=== PATIENT | female | born 1955 | race Caucasian/White ===

== ENCOUNTER 2016-07-28 01:32 | Observation (INO) | payer SELFPAY ==
[~2016-07-28] VITALS: Ht 157.5 cm; Wt 81.6 kg
[~2016-07-28 01:32] MED LIST: METO25TA3 PO; NALOXONE HCL 0.4 MG/ML AMP IV PRN; SODIUM CHLORIDE 0.9% FLUSH 10 ML FLUSH IV FLUSH PRN
[2016-07-28 01:45] VITALS: BP 160/93; PULSE 63; RESP 20; TEMP 97.3; TEMP 97.7; O2SAT 98
[2016-07-28 02:08] VITALS: PULSE 61
[2016-07-28 03:00] VITALS: PULSE 61
[2016-07-28 03:17] LABS: CREATINE KINASE 70 U/L (26-192)
[2016-07-28 04:00] VITALS: BP 152/94; PULSE 59; RESP 20; TEMP 97.7; O2SAT 97
--- NOTE | 2016-07-28 07:15 | HHI.HP ---
[facility] Primary Care Physician Non-Staff Admission Diagnosis hypertension, chest pain Diagnoses: (1) Accelerated hypertension Diagnosis: Principal (2) Chest pain Diagnosis: Principal (3) Elevated d-dimer Diagnosis: Principal (4) Cephalgia Diagnosis: Principal Chief Complaint: Elevated blood pressure, chest pain, headache Travel History International Travel<30 Days: No Contact w/Intl Traveler <30 Da: No History of Present Illness Written by Denis Schmid, acting as scribe for Dr. Olivas on 07/28/16 at 07: 25. 61-year-old female with known history of hypertension who presented to the hospital because of multiple symptoms to include headache, elevated blood pressure, chest pain, nausea, vomiting. Patient was in her normal state of health until yesterday approximately 3 PM when she was working. 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 She states that 3 PM yesterday she developed sharp stabbing pain in the left anterior chest which only lasted for a couple seconds with associated nausea, vomiting, diaphoresis, headache. Because of those reasons she came to emergency department for evaluation. Patient indicates that she has been having this type of pain intermittently over the last week which has been happening couple times daily. She indicates that she has been having discomfort prior to not taking her blood pressure medication but only once every week at that time. To to Upon evaluation in the emergency department patient was found to have accelerated hypertension, which improved after the use of clonidine. Patient had workup done which indicated an elevated d-dimer, CTA of the chest was performed which was unremarkable for any pulmonary emboli. CT of the brain was done which did not indicate any acute abnormality. Patient indicates that she usually takes metoprolol 25 mg twice daily, however, patient has been out of her blood pressure medications for 6 days. She does not have a primary medical doctor in order to fill her prescriptions. Patient indicates that after control of her blood pressure her headache did improve and she is asymptomatic at this time. At the time evaluating the patient she is asymptomatic. Blood pressure is improved. Due to the patient's increased risk factors will continue to evaluate for acute coronary syndrome and rule out for underlying ischemia. Review of Systems Constitutional: COMPLAINS OF: Diaphoretic episodes, DENIES: Fatigue, Fever, Weight gain, Weight loss, Chills, Dizziness, Change in appetite, Night Sweats Endocrine: DENIES: Abnorml menstrual pattern, Heat/cold intolerance, Polydipsia , Polyuria, Polyphagia Eyes: COMPLAINS OF: Blurred vision, DENIES: Diplopia, Eye inflammation, Eye pain, Vision loss, Double Vision Ears, nose, mouth, throat: DENIES: Nasal discharge, Throat pain, Ear Pain, Running Nose, Sinus Pain Respiratory: DENIES: Apneas, Cough, Snoring, Wheezing, Hemoptysis, Sputum production, Shortness of breath Cardiovascular: COMPLAINS OF: Chest pain, DENIES: Palpitations, Syncope, Dyspnea on Exertion, Lower Extremity Edema, Orthopnea Gastrointestinal: COMPLAINS OF: Nausea, Vomiting, DENIES: Abdominal pain, Black stools, Bloody stools, Constipation, Diarrhea, Difficulty Swallowing, Anorexia Genitourinary: DENIES: Abnormal vaginal bleeding, Dysmenorrhea, Dyspareunia, Sexual dysfunction, Urinary frequency, Urinary incontinence, Urgency, Hematuria , Dysuria, Nocturia, Vaginal discharge Musculoskeletal: DENIES: Joint pain, Muscle aches, Stiffness, Joint Swelling, Back pain, Neck pain Integumentary: DENIES: Abnormal pigmentation, Pruritus, Rash, Nail changes, Breast masses, Breast skin changes, Nipple discharge Hematologic/lymphatic: DENIES: Bruising, Lymphadenopathy Immunologic/allergic: DENIES: Eczema, Urticaria Neurologic: DENIES: Abnormal gait, Headache, Localized weakness, Paresthesias, Seizures, Speech Problems, Tremor, Poor Balance Psychiatric: DENIES: Anxiety, Confusion, Mood changes, Depression, Agitation, Suicidal Ideation, Homicidal Ideation Past Family Social History Past Medical History Hypertension Past Surgical History Hysterectomy Appendectomy Cholecystectomy Reported Medications Reported Meds & Active Scripts Active Reported Metoprolol Tartrate 25 Mg Tab 25 Mg PO BID Allergies: Coded Allergies: Codeine (Verified Allergy, Severe, 07/27/16) Family History Reviewed is significant for mother from heart disease Social History Patient denied any tobacco, alcohol or illicit drug use Physical Exam Vital Signs Vital Signs Date Time Temp Pulse Resp B/P Pulse Ox O2 Delivery O2 Flow Rate FiO2 07/28/16 04:00 97.7 59 20 152/94 97 07/28/16 03:00 61 6/21/17 02:08 61 07/28/16 01:45 97.3 63 20 160/93 98 07/28/16 01:45 97.7 63 20 160/93 98 Physical Exam GENERAL: Well-developed, well-nourished, in no acute distress. alert and orientated HEENT: Head is normocephalic without any lesions or masses noted. Facial features are symmetric. Eyes: Pupils equal round reactive to light. Extraocular muscles are intact. Conjunctivae were clear. Oropharyngeal: Pharynx without any erythema edema. Tongue is midline without deviation. Buccal mucosa is moist without any masses or lesions NECK: Supple without any masses. Trachea midline no deviation. No JVD, no bruits are appreciated CARDIAC: Regular rhythm, regular rate. S1/S2 are heard. No murmurs gallops or rubs. LUNGS: Clear to auscultation bilaterally. No wheeze, rhonchi or rales. No use of accessory muscles on inspiration or expiration. ABDOMEN: Soft, nontender. Nondistended. Bowel sounds heard in all 4 quadrants. No organomegaly or masses. Negative rebound, negative guarding EXTREMITIES: No edema, pulses are equal bilaterally. No cyanosis or clubbing NEUROLOGY: Mood and affect appear appropriate. Cranial nerves II through XII grossly intact. Muscle strength 5/5 in upper and lower extremities bilaterally. Deep tendon reflexes are 2+ in upper and lower extremities bilaterally. Laboratory Laboratory Tests Test 07/28/16 02:30 Total Creatine Kinase 70 Troponin I LESS THAN 0.02 Assessment and Plan Assessment and Plan Chest pain, with associated nausea, vomiting, diaphoresis Patient does have increased risk factors to include age, hypertension, family history of heart disease The patient has been ruled out out for acute coronary event with serial cardiac enzymes and serial EKGs do show lateral T-wave changes V3, V4, V5 which were apparent on initial EKG in emergency department Will pursue nuclear stress test rule out any underlying ischemia Elevated d-dimer: Pulmonary angiogram did not indicate any acute abnormality Check lipid panel Start aspirin Nitroglycerin as needed Resume patient's beta love Accelerated hypertension, secondary to patient ran out of her blood pressure medication Resume patient's home medication metoprolol 25 mg twice daily Clonidine as needed Cephalgia, resolved Likely secondary to uncontrolled hypertension CT of the head did not indicate any acute abnormality DVT prevention Low risk, early ambulation This note was transcribed by wanda Schmid. I, Dr. Shayan Olivas personally performed the history, physical exam, and medical decision making; and confirmed the accuracy of the information in the transcribed note. Authenticated by Dr. Shayan Olivas on 07/28/16 at 07:25. Discharge disposition Discharge home in stable condition if stress test is negative and blood pressure controlled Activity: Ad jaswinder. Diet: Healthy heart diet Medications per medication reconciliation Follow-up with primary medical doctor in one week Code Status Full code Discussed Condition With patient Problem Qualifiers (1) Cephalgia: Qualified Code: R51 - Nonintractable headache, unspecified chronicity pattern, unspecified headache type Denis Schmid Jul 28, 2016 07:15 Shayan Olivas MD Jul 28, 2016 07:25
[2016-07-28] MEDS ORDERED: ASPIRIN EC 81 MG TABEC PO ONE (07:45)
[2016-07-28] MEDS ORDERED: cloNIDine HCL 0.1 MG TAB PO PRN (07:45)
[2016-07-28] MEDS ORDERED: NITROGLYCERIN 0.4 MG SL 25 TABS/BTL SL PRN (07:45)
[2016-07-28 08:00] VITALS: BP 138/94; PULSE 54; PULSE 62; RESP 19; TEMP 97.6; O2SAT 97
[2016-07-28] MEDS ORDERED: SODIUM CHLORIDE 0.9% FLUSH 10 ML FLUSH IV FLUSH SCH (09:00)
[2016-07-28] MEDS ORDERED: METOPROLOL TARTRATE 25 MG TAB PO SCH (09:00)
[2016-07-28 09:16] LABS: CREATINE KINASE 60 U/L (26-192)
--- NOTE | 2016-07-28 10:06 | EKG ---
Date Performed: 07/28/2016 Time Performed: 08:00:17 PTAGE: 61 years EKG: SINUS BRADYCARDIA WITH SINUS ARRHYTHMIA T-WAVE ABNORMALITY, CONSIDER LATERAL ISCHEMIA ABNOR MAL ECG NO PREVIOUS TRACING DOCTOR: Tl Contreras Interpretating Date/Time 07/28/2016 10:06:27
[2016-07-28] MEDS ORDERED: REGADENOSON INJ 0.4 MG/5 ML SYR IV ONE (10:13)
--- NOTE | 2016-07-28 11:21 | RADRPT ---
EXAM DATE/TIME: 07/28/2016 09:53 [facility] COMPARISON: No previous studies available for comparison. INDICATIONS : Left sided chest pain and palpitations. Angina. DOSE: 25.8 mCi Tc99m Myoview at stress. 8.1 mCi Tc99m Myoview at rest. 0.4 mg Lexiscan STRESS SYMPTOMS: Chest pressure and flushed. EJECTION FRACTION: 62% MEDICAL HISTORY : Hypertension. SURGICAL HISTORY : Hysterectomy. Cholecystectomy. Appendectomy. ENCOUNTER: Initial ACUITY: 1 day PAIN SCALE: 3/10 LOCATION: Left chest TECHNIQUE: The patient underwent pharmacologic stress with infusion of prescribed dose. Continuous ECG tracing was monitored during stress. Gated SPECT imaging was performed after stress and conventional SPECT i maging was performed at rest. The examination was performed on a SPECT/CT scanner, both attenuation and non-corrected datasets were reviewed. FINDINGS: DISTRIBUTION: The maximum perfused segment at stress is in the anterolateral wall. PERFUSION STUDY: The pattern of perfusion at stress is within normal limits. GATED STUDY: There is intact wall motion and thickening without hypokinetic or dyskinetic segments. CONCLUSION: 1. No reversible perfusion defect to indicate stress-induced myocardial ischemia. RISK CATEGORY: Low (<1% Annual Mortality Rate) Mac Gonzalez MD on July 28, 2016 at 11:18 Board Certified Radiologist. This report was verified electronically.
[2016-07-28] MEDS ORDERED: METO25TA3 PO ×2 (11:30→11:35)
--- NOTE | 2016-07-28 11:30 | HHI.DCPOC ---
Discharge Care Plan Diagnosis: (1) Chest pain (2) Accelerated hypertension Goals to Promote Your Health * To prevent worsening of your condition and complications * To maintain your health at the optimal level Directions to Meet Your Goals Take your medications as prescribed Follow your dietary instruction Follow activity as directed Keep your appointments as scheduled Take your immunizations and boosters as scheduled If your symptoms worsen call your PCP, if no PCP go to Urgent Care Center or Emergency Room Smoking is Dangerous to Your Health. Avoid second hand smoke Call the 24-hour hour crisis hotline for domestic abuse at Denis Schmid Jul 28, 2016 11:30
[2016-07-28 11:43] LABS: HDL CHOLESTEROL 34.7 MG/DL (40.0-60.0)
[2016-07-28 12:00] VITALS: BP 132/86; PULSE 70; RESP 18; TEMP 98.1; O2SAT 98
--- NOTE | 2016-07-28 12:15 | HHI.PR ---
Addendum to Inpatient Note Addendum Reason: Additional Documentation Additional Information Follow-up atypical chest pain Nuclear stress test negative, therefore patient will be discharged home She was advised to remain compliant with medical care for treatment of her hypertension Shayan Olivas MD Jul 28, 2016 12:14
--- NOTE | 2016-07-28 14:18 | TR ---
Date Performed: 07/28/2016 Time Performed: 10:26:24 DOCTOR: Claus Fernandez DRUG LIST: CLINICAL HISTORY: CHEST PAIN REASON FOR TEST: REASON FOR ENDING: OBSERVATION: CONCLUSION: ECG during test demostrated resting ST changes which were not changed through test. Nuclear imaging is pending COMMENTS:
[2016-07-29] MEDS ORDERED: PNEUMOCOCCAL POLYVALENT INJ 25 MCG/0.5 ML SYR IM ONE (10:00)
== END 2016-07-28 14:11 | disposition home or self-care (01) ==
LOC: PHEDDLT 01:32 → PH3B 01:42
PROVIDERS: ADMIT Hospitalist; ATTEND Hospitalist
DX: R07.89 Other chest pain (principal); I10 Essential (primary) hypertension; R51 Headache; R79.1 Abnormal coagulation profile; R61 Generalized hyperhidrosis; R11.2 Nausea with vomiting, unspecified; Z88.5 Allergy status to narcotic agent; Z82.49 Family history of ischemic heart disease and other diseases of the circulatory system
CPT/HCPCS: 70450; 71275; 78452; 80053; 80061; 82550; 83690; 83735; 83880; 84484; 85025; 85379; 85610; 85730; 93005; 93017; 96374; 99285; A9502; G0378; J2405; J2785; Q9967; 99281